=== PATIENT | female | born 1950 | race African-American/Black ===

== ENCOUNTER 2022-11-14 17:22 | Emergency (ER) | payer MEDICARE, MEDICAID ==
[~2022-11-14] VITALS: Ht 167.6 cm; Wt 88.0 kg
[2022-11-14] MEDS ORDERED: ACETAMINOPHEN 325MG TABLET PO ONE (17:45)
[2022-11-14] MEDS ORDERED: IBUPROFEN 400MG TABLET PO ONE (17:45)
[2022-11-14] MEDS ORDERED: KETOROLAC 60MG/2ML VIAL IM ONE (21:30)
[2022-11-14] MEDS ORDERED: NAPR-677 MT (21:47)
[2022-11-14 22:06] VITALS: BP 136/91
== END 2022-11-14 22:11 | disposition home or self-care (01) ==
LOC: ER 17:22
DX: M25.572 Pain in left ankle and joints of left foot (principal); E11.9 Type 2 diabetes mellitus without complications; J45.909 Unspecified asthma, uncomplicated; Z86.39 Personal history of other endocrine, nutritional and metabolic disease; W18.30XA Fall on same level, unspecified, initial encounter; Y93.89 Activity, other specified; Y92.89 Other specified places as the place of occurrence of the external cause; Y99.8 Other external cause status
CPT/HCPCS: 29515; 70450; 73590; 73610; 96372; 99285; J1885